=== PATIENT | female | born 1950 | race Caucasian/White ===

== ENCOUNTER → 2016-09-24 | Outpatient (CLI) | payer OTHER ==
[~2016-09-24] MED LIST: CIPROFLOXACIN500 M1 PO; HUMIRA20 MG/0.4 SQ; HYDROCODON-ACE1 EAC7 PO; LISINOPRIL30 MG PO; MACROBID 100 M100 M1 PO; SOMA250 MG PO; ZOFRAN ODT4 MG PO
== END ==
LOC: HYPER 07:18
DX: L88 Pyoderma gangrenosum (principal); G90.09 Other idiopathic peripheral autonomic neuropathy; M14.672 Charcot's joint, left ankle and foot; K21.9 Gastro-esophageal reflux disease without esophagitis; Z96.649 Presence of unspecified artificial hip joint; Z96.653 Presence of artificial knee joint, bilateral; Z72.89 Other problems related to lifestyle

== ENCOUNTER → 2016-10-09 | Outpatient (CLI) | payer OTHER | LOC: HYPER 07:07 | DX: S91.001D Unspecified open wound, right ankle, subsequent encounter (principal); L88 Pyoderma gangrenosum; G90.09 Other idiopathic peripheral autonomic neuropathy; M14.672 Charcot's joint, left ankle and foot; L40.52 Psoriatic arthritis mutilans; K21.9 Gastro-esophageal reflux disease without esophagitis; X58.XXXD Exposure to other specified factors, subsequent encounter ==

== ENCOUNTER → 2016-10-23 | Outpatient (CLI) | payer OTHER | LOC: HYPER 07:13 | DX: L88 Pyoderma gangrenosum (principal); G90.09 Other idiopathic peripheral autonomic neuropathy; M14.672 Charcot's joint, left ankle and foot; L40.52 Psoriatic arthritis mutilans; K21.9 Gastro-esophageal reflux disease without esophagitis; Z96.653 Presence of artificial knee joint, bilateral; Z96.649 Presence of unspecified artificial hip joint ==

== ENCOUNTER → 2016-11-06 | Outpatient (CLI) | payer OTHER | LOC: HYPER 07:09 | DX: L88 Pyoderma gangrenosum (principal); G90.09 Other idiopathic peripheral autonomic neuropathy; M14.672 Charcot's joint, left ankle and foot; K21.9 Gastro-esophageal reflux disease without esophagitis; Z96.649 Presence of unspecified artificial hip joint; Z96.653 Presence of artificial knee joint, bilateral; Z72.89 Other problems related to lifestyle ==

== ENCOUNTER → 2016-12-04 | Outpatient (CLI) | payer OTHER | LOC: HYPER 11-20 14:45 | DX: L88 Pyoderma gangrenosum (principal); G90.09 Other idiopathic peripheral autonomic neuropathy; M14.672 Charcot's joint, left ankle and foot; L40.52 Psoriatic arthritis mutilans; K21.9 Gastro-esophageal reflux disease without esophagitis; Z96.649 Presence of unspecified artificial hip joint; Z96.653 Presence of artificial knee joint, bilateral; Z72.89 Other problems related to lifestyle ==

== ENCOUNTER → 2017-01-01 | Outpatient (CLI) | payer OTHER | LOC: HYPER 06:58 | DX: S91.001D Unspecified open wound, right ankle, subsequent encounter (principal); L88 Pyoderma gangrenosum; S81.802D Unspecified open wound, left lower leg, subsequent encounter; G90.09 Other idiopathic peripheral autonomic neuropathy; M14.672 Charcot's joint, left ankle and foot; L40.52 Psoriatic arthritis mutilans; K21.9 Gastro-esophageal reflux disease without esophagitis; Z72.89 Other problems related to lifestyle; Z96.653 Presence of artificial knee joint, bilateral; Z96.649 Presence of unspecified artificial hip joint; X58.XXXD Exposure to other specified factors, subsequent encounter ==

== ENCOUNTER → 2017-01-15 | Outpatient (CLI) | payer OTHER | LOC: HYPER 06:56 | DX: L88 Pyoderma gangrenosum (principal); G90.09 Other idiopathic peripheral autonomic neuropathy; M14.672 Charcot's joint, left ankle and foot; L40.52 Psoriatic arthritis mutilans; K21.9 Gastro-esophageal reflux disease without esophagitis; Z96.653 Presence of artificial knee joint, bilateral; Z96.649 Presence of unspecified artificial hip joint; Z72.89 Other problems related to lifestyle ==

== ENCOUNTER → 2017-01-26 | Outpatient (CLI) | payer OTHER | LOC: HYPER 01-22 07:11 | DX: S81.802D Unspecified open wound, left lower leg, subsequent encounter (principal); S91.001D Unspecified open wound, right ankle, subsequent encounter; L88 Pyoderma gangrenosum; G90.09 Other idiopathic peripheral autonomic neuropathy; M14.672 Charcot's joint, left ankle and foot; K21.9 Gastro-esophageal reflux disease without esophagitis; Z72.89 Other problems related to lifestyle; Z96.653 Presence of artificial knee joint, bilateral; Z96.649 Presence of unspecified artificial hip joint; X58.XXXD Exposure to other specified factors, subsequent encounter ==

== ENCOUNTER → 2017-02-05 | Outpatient (CLI) | payer OTHER | LOC: HYPER 02-03 07:01 | DX: S81.802D Unspecified open wound, left lower leg, subsequent encounter (principal); L88 Pyoderma gangrenosum; G90.09 Other idiopathic peripheral autonomic neuropathy; M14.672 Charcot's joint, left ankle and foot; L40.52 Psoriatic arthritis mutilans; K21.9 Gastro-esophageal reflux disease without esophagitis; Z96.653 Presence of artificial knee joint, bilateral; Z96.649 Presence of unspecified artificial hip joint; Z72.89 Other problems related to lifestyle; X58.XXXD Exposure to other specified factors, subsequent encounter ==

== ENCOUNTER → 2017-02-25 | Outpatient (CLI) | payer OTHER | LOC: HYPER 06:59 | DX: S81.802D Unspecified open wound, left lower leg, subsequent encounter (principal); L88 Pyoderma gangrenosum; M14.672 Charcot's joint, left ankle and foot; L40.52 Psoriatic arthritis mutilans; G90.09 Other idiopathic peripheral autonomic neuropathy; K21.9 Gastro-esophageal reflux disease without esophagitis; Z96.653 Presence of artificial knee joint, bilateral; Z96.649 Presence of unspecified artificial hip joint; Z72.89 Other problems related to lifestyle; X58.XXXD Exposure to other specified factors, subsequent encounter ==

== ENCOUNTER → 2017-03-11 | Outpatient (CLI) | payer OTHER | LOC: HYPER 06:44 | DX: L88 Pyoderma gangrenosum (principal); G90.09 Other idiopathic peripheral autonomic neuropathy; M14.672 Charcot's joint, left ankle and foot; L40.52 Psoriatic arthritis mutilans; K21.9 Gastro-esophageal reflux disease without esophagitis; Z96.653 Presence of artificial knee joint, bilateral; Z96.649 Presence of unspecified artificial hip joint; Z72.89 Other problems related to lifestyle ==

== ENCOUNTER → 2017-03-27 | Outpatient (CLI) | payer OTHER | LOC: HYPER 07:57 | DX: S81.802D Unspecified open wound, left lower leg, subsequent encounter (principal); L88 Pyoderma gangrenosum; G90.09 Other idiopathic peripheral autonomic neuropathy; L40.52 Psoriatic arthritis mutilans; K21.9 Gastro-esophageal reflux disease without esophagitis; Z72.89 Other problems related to lifestyle; Z96.653 Presence of artificial knee joint, bilateral; Z96.649 Presence of unspecified artificial hip joint; X58.XXXD Exposure to other specified factors, subsequent encounter ==

== ENCOUNTER → 2017-05-27 | Outpatient (CLI) | payer OTHER | LOC: HYPER 07:58 | DX: S81.802D Unspecified open wound, left lower leg, subsequent encounter (principal); L88 Pyoderma gangrenosum; G90.09 Other idiopathic peripheral autonomic neuropathy; M14.672 Charcot's joint, left ankle and foot; L40.52 Psoriatic arthritis mutilans; K21.9 Gastro-esophageal reflux disease without esophagitis; Z96.653 Presence of artificial knee joint, bilateral; Z96.649 Presence of unspecified artificial hip joint; Z72.89 Other problems related to lifestyle; X58.XXXD Exposure to other specified factors, subsequent encounter ==

== ENCOUNTER → 2017-06-10 | Outpatient (CLI) | payer OTHER | LOC: HYPER 06:48 | DX: L89.892 Pressure ulcer of other site, stage 2 (principal); L88 Pyoderma gangrenosum; M14.672 Charcot's joint, left ankle and foot; K21.9 Gastro-esophageal reflux disease without esophagitis; G90.09 Other idiopathic peripheral autonomic neuropathy; L84 Corns and callosities; Z72.89 Other problems related to lifestyle; Z96.653 Presence of artificial knee joint, bilateral ==

== ENCOUNTER → 2017-06-25 | Outpatient (CLI) | payer OTHER ==
[~2017-06-25] MED LIST changes: +ARAVA10 MG PO; +CARISOPRODOL 3350 MG PO; +DILAUDID 2 MG TA2 MG PO; +GLUCOSAMINE-CH1 EA34 PO; +IRON PO; +IRON325 PO; +LEFLUNOMIDE 1010 MG PO; +LEVAQUIN 500 M500 M2 PO; +NEURONTIN 300300 M1 PO; +OMEGA-31000 M1 PO; +PROBIOTIC1 EAC1 PO; +PROTONIX40 M1 PO; +SSKI1 GM/1 ML PO; +TRAZODONE HCL100 MG PO; +UNICOMPLEX M TA1 TA1 PO; +VENLAFAXINE HC150 M1 PO; +VITAMIN D1000 UNI1 PO
== END ==
LOC: HYPER 06:53
DX: S81.802D Unspecified open wound, left lower leg, subsequent encounter (principal); L88 Pyoderma gangrenosum; G90.09 Other idiopathic peripheral autonomic neuropathy; M14.672 Charcot's joint, left ankle and foot; L40.52 Psoriatic arthritis mutilans; K21.9 Gastro-esophageal reflux disease without esophagitis; Z72.89 Other problems related to lifestyle; X58.XXXD Exposure to other specified factors, subsequent encounter

== ENCOUNTER → 2017-07-16 | Outpatient (CLI) | payer OTHER | LOC: HYPER 06:33 | DX: L88 Pyoderma gangrenosum (principal); L84 Corns and callosities; L89.899 Pressure ulcer of other site, unspecified stage; G90.09 Other idiopathic peripheral autonomic neuropathy; M14.672 Charcot's joint, left ankle and foot; L40.52 Psoriatic arthritis mutilans; K21.9 Gastro-esophageal reflux disease without esophagitis; Z96.653 Presence of artificial knee joint, bilateral; Z72.89 Other problems related to lifestyle ==

== ENCOUNTER → 2017-07-22 | Outpatient (CLI) | payer OTHER | LOC: HYPER 06:55 | DX: L89.899 Pressure ulcer of other site, unspecified stage (principal); L88 Pyoderma gangrenosum; G90.09 Other idiopathic peripheral autonomic neuropathy; M14.672 Charcot's joint, left ankle and foot; L40.52 Psoriatic arthritis mutilans; I89.0 Lymphedema, not elsewhere classified; K21.9 Gastro-esophageal reflux disease without esophagitis; Z72.89 Other problems related to lifestyle; Z96.653 Presence of artificial knee joint, bilateral ==

== ENCOUNTER → 2017-07-30 | Outpatient (CLI) | payer OTHER | LOC: HYPER 06:50 | DX: L89.899 Pressure ulcer of other site, unspecified stage (principal); L88 Pyoderma gangrenosum; G90.09 Other idiopathic peripheral autonomic neuropathy; M14.672 Charcot's joint, left ankle and foot; L40.52 Psoriatic arthritis mutilans; I89.0 Lymphedema, not elsewhere classified; K21.9 Gastro-esophageal reflux disease without esophagitis; Z72.89 Other problems related to lifestyle ==

== ENCOUNTER → 2017-08-27 | Outpatient (CLI) | payer OTHER | LOC: HYPER 06:56 | DX: L89.899 Pressure ulcer of other site, unspecified stage (principal); L88 Pyoderma gangrenosum; I89.0 Lymphedema, not elsewhere classified; L40.52 Psoriatic arthritis mutilans; M14.672 Charcot's joint, left ankle and foot; G90.09 Other idiopathic peripheral autonomic neuropathy; L84 Corns and callosities; K21.9 Gastro-esophageal reflux disease without esophagitis; Z72.89 Other problems related to lifestyle; Z96.653 Presence of artificial knee joint, bilateral ==

== ENCOUNTER → 2017-09-10 | Outpatient (CLI) | payer OTHER | LOC: HYPER 06:57 | DX: L97.511 Non-pressure chronic ulcer of other part of right foot limited to breakdown of skin (principal); L88 Pyoderma gangrenosum; I89.0 Lymphedema, not elsewhere classified; M14.672 Charcot's joint, left ankle and foot; L40.52 Psoriatic arthritis mutilans; G90.09 Other idiopathic peripheral autonomic neuropathy; K21.9 Gastro-esophageal reflux disease without esophagitis; Z72.89 Other problems related to lifestyle; Z96.653 Presence of artificial knee joint, bilateral ==

== ENCOUNTER → 2017-10-09 | Outpatient (CLI) | payer OTHER ==
[~2017-10-09] MED LIST changes: -ARAVA10 MG PO; -CARISOPRODOL 3350 MG PO; -DILAUDID 2 MG TA2 MG PO; -GLUCOSAMINE-CH1 EA34 PO; -IRON PO; -IRON325 PO; -LEFLUNOMIDE 1010 MG PO; -LEVAQUIN 500 M500 M2 PO; -NEURONTIN 300300 M1 PO; -OMEGA-31000 M1 PO; -PROBIOTIC1 EAC1 PO; -PROTONIX40 M1 PO; -SSKI1 GM/1 ML PO; -TRAZODONE HCL100 MG PO; -UNICOMPLEX M TA1 TA1 PO; -VENLAFAXINE HC150 M1 PO; -VITAMIN D1000 UNI1 PO
== END ==
LOC: HYPER 07:58
DX: L97.511 Non-pressure chronic ulcer of other part of right foot limited to breakdown of skin (principal); L88 Pyoderma gangrenosum; I89.0 Lymphedema, not elsewhere classified; K21.9 Gastro-esophageal reflux disease without esophagitis; L84 Corns and callosities; L40.52 Psoriatic arthritis mutilans; M14.672 Charcot's joint, left ankle and foot; G90.09 Other idiopathic peripheral autonomic neuropathy; Z96.653 Presence of artificial knee joint, bilateral

== ENCOUNTER → 2017-10-23 | Outpatient (CLI) | payer OTHER | LOC: HYPER 08:05 | DX: L89.892 Pressure ulcer of other site, stage 2 (principal); L88 Pyoderma gangrenosum; M14.672 Charcot's joint, left ankle and foot; I89.0 Lymphedema, not elsewhere classified; L84 Corns and callosities; K21.9 Gastro-esophageal reflux disease without esophagitis; L40.52 Psoriatic arthritis mutilans; G90.09 Other idiopathic peripheral autonomic neuropathy; Z96.653 Presence of artificial knee joint, bilateral ==

== ENCOUNTER → 2017-11-02 | Outpatient (CLI) | payer OTHER | LOC: HYPER 07:05 | DX: L89.892 Pressure ulcer of other site, stage 2 (principal); L88 Pyoderma gangrenosum; M14.672 Charcot's joint, left ankle and foot; K21.9 Gastro-esophageal reflux disease without esophagitis; I89.0 Lymphedema, not elsewhere classified; L84 Corns and callosities; L40.52 Psoriatic arthritis mutilans; G90.09 Other idiopathic peripheral autonomic neuropathy; Z96.653 Presence of artificial knee joint, bilateral ==

== ENCOUNTER → 2017-12-21 | Outpatient (CLI) | payer OTHER | LOC: HYPER 07:13 | DX: L89.892 Pressure ulcer of other site, stage 2 (principal); L88 Pyoderma gangrenosum; L40.52 Psoriatic arthritis mutilans; I89.0 Lymphedema, not elsewhere classified; L84 Corns and callosities; K21.9 Gastro-esophageal reflux disease without esophagitis; M14.672 Charcot's joint, left ankle and foot; G90.09 Other idiopathic peripheral autonomic neuropathy; Z96.653 Presence of artificial knee joint, bilateral ==

== ENCOUNTER 2018-01-11 15:32 | Inpatient (IN) | payer OTHER ==
[~2018-01-11] VITALS: Ht 170.2 cm; Wt 86.2 kg
--- NOTE | ~2018-01-11 | O ---
[facility] [place] [address] OPERATIVE REPORT Name: JESSIKADA Micah Room #: 225-P [facility] IN M.R.#: [id number] Admission: 01/11/18 Attend Phys: Corey Chan MD Discharge: 01/15/18 Date of : 50 Report #: [id number] THIS REPORT FOR: //name// CC: Corey Dozierelle Messi [facility] DATE OF SERVICE: 01/14/2018 PREOPERATIVE DIAGNOSIS: Infected right second toe. POSTOPERATIVE DIAGNOSIS: Infected right second toe. PROCEDURE: Amputation, right second toe. 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 This has advanced to involve the bone and imaging studies suggest osteomyelitis of the distal phalanx. There is moderate surrounding cellulitis and a small open wound. She also has some generalized vascular disease and some lymphedema in the extremity causing some additional problems. She also has a right total knee in place and there is some concern for possible secondary infection there if we do not resolve this toe issue appropriately. Therefore, we have elected to go ahead with amputation of the second toe at the level of the PIP joint. I have discussed this with the patient and her , they understand and agree. DESCRIPTION OF PROCEDURE: The patient was taken to the operating room where she was placed under brief IV sedation. The right foot and lower leg were then meticulously prepped and draped. Local anesthesia was established with injection of 2% lidocaine at the base of the second toe. Good local anesthetic was established. The foot was gently exsanguinated with an Esmarch bandage, which was left around the distal leg as a gentle tourniquet. A fish-mouth shaped skin incision was then made about the level of the DIP joint. The dissection was then extended in a subperiosteal fashion back to the PIP joint and the toe was amputated at that level. The toe was passed off the field and the wound was copiously irrigated with antibiotic solution. The skin edges appeared to be adequately perfused and healthy. There was no evidence of infection at this level. The bone was slightly shortened removing some of the more prominent condylar area at the bone at the distal aspect of the proximal phalanx. This resulted in adequate room for a loose soft tissue closure. The fascia was closed with 4-0 Monocryl. The skin was closed with 4-0 Prolene. This resulted in a very satisfactory well padded, loose soft tissue closure. The Esmarch bandage was removed. Good hemostasis was confirmed. Gentle pressure was held over the toe for several minutes until it was completely dry. A soft dressing was then applied. The patient was then awakened and returned to [address] [address] OPERATIVE REPORT Name: DA ROSEN Room #: 225-P [facility] IN .R.#: [id number] Admission: 01/11/18 Attend Phys: Corey Chan MD Discharge: 01/15/18 Date of : 50 Report #: [id number] recovery room in good condition. She will be monitored there for a suitable period and then return to her current hospital bed in the [facility] area. I understand they have already made plans for hospital discharge within the coming 24-48 hours, which is acceptable for my view. I have advised the patient and her to change the dressing periodically as needed. We can see her back in the office next week for routine followup if there any problems or questions, we will plan to see her back in 2 weeks for suture removal. <ELECTRONICALLY SIGNED> By: Jasmeet Proctor MD 01/18/18 1021 1031 1142 Jasmeet Proctor MD /nt
--- NOTE | ~2018-01-11 | HC ---
[facility] [place] [address] CONSULTATION Name: JESSIKADA P Room #: 225-P AD[facility] IN M.R.#: [id number] Admission: 01/11/18 Attend Phys: Corey Chan MD Discharge: Date of : 50 Report #: [id number] THIS REPORT FOR: //name// CC: [facility] DATE OF SERVICE: 01/12/2018 REASON FOR CONSULTATION: I was asked to evaluate concerning right lower extremity cellulitis. HISTORY OF PRESENT ILLNESS: The patient was a 67-year-old with a history of psoriatic arthritis and pyoderma gangrenosum. She has been on immunosuppression with biologic agent along with Arava for her arthritis. This has been under reasonable control. She sees Dr. Michael Restrepo for this. She also sees Dermatology for her psoriatic skin disease as well as most recently for recurring cellulitis of the lower extremity on the right. Previously, she had had pyoderma lesions on this leg. Approximately 2 weeks ago, she noticed some increased erythema to the lower leg. This was associated with tenderness. It was not severe in nature. It was associated with increased edema. She had had no other new skin lesions consistent with pyoderma. She reported no specific trauma. She does have a chronic pressure wound to the second toe on the right foot, which is a hammertoe. She treats this topically. Two weeks ago, she was placed on minocycline b.i.d. for a week, then was to be on once daily after that. She noticed no improvement with this treatment. Yesterday noticed significant worsening with now swelling up to the proximal calf and several areas of erythema to the thigh. She denies any fever, chills or sweats. She was seen in the outpatient clinic by Dr. Lomeli yesterday who recommended admission for further treatment. She was then placed on vancomycin and Levaquin. She does report swimming in [place]. In addition to this, she had been pulling weeds in her yard. She noticed over the last week to have increased pruritic rash to both upper extremities. She had been treating this with topical agent. REVIEW OF SYSTEMS: She denies any specific weight loss or fatigue. No ENT issues. No visual changes. Denies any chest pain or palpitations. No cough or sputum production. No heat intolerance or polydipsia. No nausea, vomiting or diarrhea. No dysuria or frequency. No lymphadenopathy. No psychiatric issues. No headaches or change in sensation. She does have noted peripheral neuropathy, right greater than left feet. No myalgias or arthralgias. Otherwise, her arthritis seems to be under reasonable control. Denies asthma. ALLERGIES: PENICILLIN, CEPHALOSPORINS, DEMEROL, COMPAZINE. MEDICATIONS: As noted on her MAR including Neurontin, Protonix, venlafaxine, leflunomide, vitamin D, Neurontin, potassium iodide, lactobacillus, trazodone, [address] [address] CONSULTATION Name: DA ROSEN Room #: 225-P [facility] IN M.R.#: [id number] Admission: 01/11/18 Attend Phys: Corey Chan MD Discharge: Date of : 50 Report #: [id number] Soma, omega 3, iron, lisinopril, Dilaudid, glucosamine, multivitamin. It is recorded that she is on Humira, but the patient states that she stopped this several months ago and is on an alternate agent. 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 She has IBS, chronic back pain, tinnitus, history of MRSA, ACL replacement on the left, now with left total knee arthroplasty, right total knee arthroplasty, extensive surgery to her left hand. FAMILY HISTORY: Arthritis. SOCIAL HISTORY: Nonsmoker, no significant alcohol intake. Ambulates mostly with electric wheelchair. PHYSICAL EXAMINATION: VITAL SIGNS: Afebrile, vital signs were stable. GENERAL: She was alert and cooperative. She was sitting up in her chair. She was able to walk over and get in her bed on her own. HEENT: Unremarkable. Eyes unremarkable. NECK: Supple. No thyromegaly or mass. No adenopathy. SKIN: Remarkable for contact dermatitis changes to both upper extremities. She had scarring involving her left distal hand with deformity. There was cellulitis involving the right lower extremity from ankle to proximal calf. There were some extending lymphangitis to the anterior knee and anterior thigh. No tenderness in the groin. She had an ulcer over the distal aspect of her right second toe with swelling there and hammertoe deformity. CHEST: Clear, without murmur. Full expansion. BACK: Nontender to percussion. HEART: Regular without murmur. No murmur, gallop or rub. ABDOMEN: Soft, nontender, no hepatosplenomegaly or mass. No CVA tenderness. NEUROLOGIC: Nonfocal. GENITAL AND RECTAL: Not performed. Peripheral pulses were intact. Good capillary refill noted. LABORATORY STUDIES: Blood cultures are pending. Venous ultrasound negative for DVT. Lactate 1.1, sodium 135, potassium 3.5, bicarbonate 29, creatinine 0.8, hemoglobin 15, WBC 10.4, platelet count 218,000. Differential was unremarkable. IMPRESSION: 1. A 67-year-old with psoriatic arthritis, immunosuppressed, presents with right lower extremity cellulitis with lymphangitis. She has hammertoe deformity of the second toe with chronic ulceration. Of suspecting this is the initial source of her infection. Along with this, the patient has recurring edema along with recurring venous stasis dermatitis and cellulitis. Also, has prosthetic joint in her right knee. [facility] [address] [place] [address] CONSULTATION Name: DA ROSEN Room #: 225-P [facility] IN [facility].#: [id number] Admission: 01/11/18 Attend Phys: Corey Chan MD Discharge: Date of : 50 Report #: [id number] 2. She has contact dermatitis involving both upper extremities. Past history of sporotrichosis, which appears controlled. SHE HAS MULTIPLE DRUG ALLERGIES INCLUDING PENICILLIN AND CEPHALOSPORINS. Quiescent pyoderma gangrinosum. RECOMMENDATION: 1. Due to the extensive nature of her current infection and her immunosuppression, we will use broad antibiotic coverage with vancomycin and Levaquin. She has had exposure to [place] water prior to her presentation. She has a chronic wound to the right second toe, which will need to be further evaluated. I would recommend an orthopedic evaluation to further address her hammertoe deformity. Likely require a distal toe amputation. We will obtain x-rays to further evaluate. 2. We will continue holding her immunosuppression at this point in time to regain control of this infection. 3. She will be treated with topical corticosteroids for her contact dermatitis. <ELECTRONICALLY SIGNED> By: Rene Sarmiento MD 01/13/18 0824 1743 10 Rene Sarmiento MD /nt
--- NOTE | ~2018-01-11 | HC ---
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 As a result, she has developed a pressure sore at the tip of the toe, which has advanced to an open wound and apparent osteomyelitis of the distal phalanx. She has mild discomfort and seems to have generally adequate vascular and neurologic function. She does have moderate generalized lymphedema in the right leg and also has had a previous right total knee arthroplasty. There appears to be some generalized erythema of the leg, possibly consistent with mild cellulitis. Given these issues, her primary physicians and Dr. Sarmiento from Infectious Disease feel that removal of the infected toe is probably most appropriate. PHYSICAL EXAMINATION: GENERAL: At the time of my evaluation, the patient is alert and oriented and seems to understand the situation quite well. MUSCULOSKELETAL: She notes she is able to ambulate with appropriate protection. She does have some bilateral leg discomfort as a result of her chronic lymphedema. She notes her bilateral total knee replacements are functioning adequately and she does not seem to have any evidence of problems or infection there. The right foot demonstrates a significantly deformed claw toe involving the second toe. There is no problem with the skin overlying the flexed PIP joint, but there is a soft tissue wound and infection at the tip of the toe, consistent with distal phalanx osteomyelitis. Sensation appears to be satisfactory. Vascular supply also appears to be satisfactory. RADIOLOGIC: Imaging studies confirm evidence of osteomyelitis at the distal phalanx. IMPRESSION AND PLAN: I have discussed at some length with the patient and subsequently with her , the nature of this problem. They seem to understand well and agree that amputation of the distal toe is most appropriate. I think the safest option is at the level of the PIP joint, where she has no evidence of infection and no cellulitis and good soft tissues. We have discussed this and other treatment options and the patient wishes to proceed. [address] [address] CONSULTATION Name: DA ROSEN Room #: 225-P [facility] IN .R.#: [id number] Admission: 01/11/18 Attend Phys: Corey Chan MD Discharge: 01/15/18 Date of : 50 Report #: [id number] Given this, we have made plans to proceed with amputation of the right second toe on 01/14/2018. <ELECTRONICALLY SIGNED> By: Jasmeet Proctor MD 01/18/18 1021 1038 1121 Jasmeet Proctor MD /jake
[2018-01-11 15:34] VITALS: BP 169/86
[2018-01-11] MEDS ORDERED: GLUCOSAMINE-CH1 EA34 PO (15:44)
[2018-01-11] MEDS ORDERED: VITAMIN D1000 UNI1 PO ×2 (15:44→22:46)
[2018-01-11] MEDS ORDERED: PROTONIX40 M1 PO (15:44)
[2018-01-11] MEDS ORDERED: NEURONTIN 300300 M1 PO ×2 (15:44→22:46)
[2018-01-11] MEDS ORDERED: SSKI1 GM/1 ML PO ×2 (15:45→22:47)
[2018-01-11] MEDS ORDERED: LEFLUNOMIDE 1010 MG PO (15:46)
[2018-01-11] MEDS ORDERED: VENLAFAXINE HC150 M1 PO (15:46)
[2018-01-11] MEDS ORDERED: DILAUDID 2 MG TA2 MG PO (15:47)
[2018-01-11] MEDS ORDERED: UNICOMPLEX M TA1 TA1 PO (15:48)
[2018-01-11] MEDS ORDERED: IRON PO (15:48)
[2018-01-11 16:27] LABS: HEMOGLOBIN 15.1 gm/dL (12.0-15.0); RDW 14.3 % (10.5-14.5)
[2018-01-11 16:29] LABS: ABSOLUTE NEUTROPHILS 7.9 thou/uL (1.4-8.2); BASOPHILS 0.6 % (0.0-2.0); HEMATOCRIT 44.6 % (37.0-47.0); LYMPHOCYTES 13.2 % (24.0-44.0); MCH 33.1 pg (26.0-34.0); MCHC 33.8 g/dL (28.0-37.0); MCV 98.1 fL (80.0-100.0); MONOCYTES 8.4 % (1.0-8.0); PLATELET COUNT 218 thou/uL (150-400); POLYS 75.8 % (36.0-66.0); RBC 4.54 mil/uL (4.20-5.00); WBC 10.4 thou/uL (4.0-11.0)
[2018-01-11 16:34] LABS: CALCIUM 9.5 mg/dL (8.5-10.1); CREATININE 0.8 mg/dL (0.6-1.0); POTASSIUM 3.5 mmol/L (3.5-5.1)
[2018-01-11 19:03] VITALS: BP 197/99
[2018-01-11 19:32] VITALS: BP 189/98
[2018-01-11 19:55] VITALS: BP 143/70
[2018-01-11] MEDS ORDERED: PROBIOTIC1 EAC1 PO (22:47)
[2018-01-11] MEDS ORDERED: ARAVA10 MG PO (22:48)
[2018-01-11] MEDS ORDERED: TRAZODONE HCL100 MG PO (22:52)
[2018-01-11] MEDS ORDERED: CARISOPRODOL 3350 MG PO (22:52)
[2018-01-11] MEDS ORDERED: OMEGA-31000 M1 PO (22:53)
[2018-01-11] MEDS ORDERED: IRON325 PO (22:54)
[2018-01-12 03:20] VITALS: BP 156/88
[2018-01-12 07:03] VITALS: BP 156/78
[2018-01-12 15:24] VITALS: BP 171/91
[2018-01-12 19:54] VITALS: BP 125/79
[2018-01-13 08:15] VITALS: BP 173/108
[2018-01-13 20:12] VITALS: BP 157/95
[2018-01-14 07:35] VITALS: BP 186/103
[2018-01-14 21:45] VITALS: BP 148/81
[2018-01-15 07:28] LABS: ABSOLUTE NEUTROPHILS 4.4 thou/uL (1.4-8.2); EOSINOPHILS 1.8 % (0.0-3.0); HEMATOCRIT 38.6 % (37.0-47.0); LYMPHOCYTES 30.6 % (24.0-44.0); MCH 32.8 pg (26.0-34.0); MCHC 33.7 g/dL (28.0-37.0); MCV 97.4 fL (80.0-100.0); MONOCYTES 9.8 % (1.0-8.0); PLATELET COUNT 198 thou/uL (150-400); POLYS 56.8 % (36.0-66.0); RBC 3.97 mil/uL (4.20-5.00); WBC 7.8 thou/uL (4.0-11.0)
[2018-01-15 07:30] VITALS: BP 155/86
[2018-01-15 07:39] LABS: ALBUMIN 2.8 g/dL (3.4-5.0); CALCIUM 8.5 mg/dL (8.5-10.1); CREATININE 0.7 mg/dL (0.6-1.0); MAGNESIUM 1.5 mg/dL (1.8-2.4); POTASSIUM 3.5 mmol/L (3.5-5.1); TOTAL BILIRUBIN 0.4 mg/dL (<0.1-1.0); TOTAL PROTEIN 6.3 g/dL (6.4-8.2)
[2018-01-15 10:13] VITALS: BP 155/86
[2018-01-15] MEDS ORDERED: LEVAQUIN 500 M500 M2 PO (11:53)
[2018-01-15 12:34] VITALS: BP 155/86
[2018-01-15 13:58] VITALS: BP 155/86
== END 2018-01-15 13:59 | disposition home health service (06) | DRG 503 ==
LOC: ER 15:32 → 4E 17:05 → EROBS 17:05 → SICU 17:05 → 4E 19:35 → SICU 01-12 18:26 → ENTRNSPT 01-15 13:14 → EDTRNSPTSTS 01-15 13:16 → SICU 01-15 13:59
PROVIDERS: Nurse Practitioner Family; Physician Assistant
PROC: 0Y6R0Z3 Detachment at Right 2nd Toe, Low, Open Approach (ICD-10-PCS; principal; 2018-01-14)
DX: M86.8X8 Other osteomyelitis, other site (principal); E43 Unspecified severe protein-calorie malnutrition; L03.115 Cellulitis of right lower limb; L88 Pyoderma gangrenosum; G89.29 Other chronic pain; M54.9 Dorsalgia, unspecified; Z96.653 Presence of artificial knee joint, bilateral; Z96.642 Presence of left artificial hip joint; L23.7 Allergic contact dermatitis due to plants, except food; L40.50 Arthropathic psoriasis, unspecified; F32.9 Major depressive disorder, single episode, unspecified; M54.5 Low back pain; K21.9 Gastro-esophageal reflux disease without esophagitis; M14.671 Charcot's joint, right ankle and foot; Z68.29 Body mass index [BMI] 29.0-29.9, adult; Z88.0 Allergy status to penicillin; Z88.8 Allergy status to other drugs, medicaments and biological substances; Z82.61 Family history of arthritis
CPT/HCPCS: 10084; 15002; 50010; 50101; 50386; 56526; 56528; 57091; 62110; 62850; 70005